=== PATIENT | male | born 1935 | race Caucasian/White ===

== ENCOUNTER 2016-04-04 15:43 | Inpatient (IN) | payer MEDICARE, BC ==
[~2016-04-04] VITALS: Ht 182.9 cm; Wt 77.9 kg
[~2016-04-04 15:43] MED LIST: AGGRENOX CAPSUL1 CAP PO; AGGRENOX ER 251 CER PO; ALDACTONE 25MG25 M1 PO; ALDACTONE 25MG25 MG PO; AREDS 2 PO; ASPIR-LOW81 MG PO; ASPIRIN E.C. 8181 MG PO; AVODART 0.5MG0.5 MG PO; CALCIUM + D 6001 TA1 PO; CLONAZEPAM PO; DOXAZOCIN; DOXAZOCIN PO; ESCITALOPRAM; FISH OIL CONC1000 MG PO; FLAXSEED OIL1 CAP PO; FLOMAX 0.40.4 MG/CAP PO; FLONASE NASAL S16 GM NS; HCTZ; HCTZ PO; HCTZ12.5TAB PO; JALYN 0.5 MG-0.1 CAP PO; LEXAPRO 10MG10 MG PO; LEXAPRO PO; LOPRESSOR 225 MG/TAB PO; LOTENSIN40 MG PO; LOTENSIN5 MG PO; LOTREL 5 MG-201 CAP PO; LOTREL 5 MG-401 CAP PO; LUTEIN20 MG PO; MULTAQ400 MG PO; NORCO 325 MG-51 TAB PO; NORVASC 5MG5 MG/TAB PO; PACERONE200 MG PO; POTASSIUM CL 220 MEQ PO; PRILOSEC 20MG20 MG PO; PRILOSEC10 MG PO; TEKTURNA HCT PO; TEKTURNA HCT150/12.5 PO; TOPROL; TOPROL PO; TOPROL XL25 MG PO; ZOCOR; ZOCOR 10MG10 MG PO; ZOCOR 40MG40 MG PO; [UNRECOGNIZED DRUG - OTHER] PO
[2016-04-04 16:42] LABS: BASO # 0.1 (0.0-0.2); BASO % 0.8 % (0.0-2.0); EOS # 0.2 (0.0-0.7); EOS % 2.6 % (0-4.0); GRAN # 5.3 (1.4-6.5); GRAN % 67.6 % (42.2-75.2); HEMATOCRIT 42.1 % (42.0-52.0); HEMOGLOBIN 14.3 g/dl (13.5-18.0); LYMPH # 1.5 (1.2-3.4); LYMPH % 19.1 % (20.0-51.0); MEAN CELL VOLUME 103 fl (80.0-100.0); MEAN CORPUSCULAR HEMOGLOBIN 35 pg (27.0-31.0); MEAN CORPUSCULAR HGB CONC 34 g/dl (33.0-37.0); MEAN PLATELET VOLUME 9.7 fl (7.4-10.4); MONO # 0.8 (0.1-0.6); MONO % 9.6 % (1.7-9.3); PLATELET COUNT 191 K/mm3 (130-400); RED BLOOD COUNT 4.07 M/mm3 (4.20-5.60); WHITE BLOOD COUNT 7.8 K/mm3 (4.8-10.8)
[2016-04-04 16:54] LABS: ADJUSTED CALCIUM 9.4 mg/dL (8.4-10.2); ALANINE AMINOTRANSFERASE 36 U/L (21-72); ALBUMIN 4.4 gm/dL (3.5-5.0); ALKALINE PHOSPHATASE 54 U/L (50-136); ANION GAP 10 mmol/L (7-16); BILIRUBIN,TOTAL 1.1 mg/dL (0.0-1.0); BLOOD UREA NITROGEN 18 mg/dL (9-20); CALCIUM 9.7 mg/dL (8.4-10.2); CARBON DIOXIDE 28 mmol/L (22-30); CHLORIDE 101 mmol/L (98-107); CREATININE, serum 0.97 mg/dL (0.66-1.25); GLUCOSE 94 mg/dL (74-106); SODIUM 139 mmol/L (137-145); TOTAL PROTEIN 7.4 gm/dL (6.4-8.2)
[2016-04-04 16:58] LABS: C-REACTIVE PROTEIN < 0.5 mg/dL (0.0-0.9)
[2016-04-04] MEDS ORDERED: ZOCOR 10MG10 MG PO (17:14)
[2016-04-04 17:21] LABS: PH 7 (5-8); SQUAMOUS EPITHELIAL None Seen /hpf; URINE APPEARANCE Clear; URINE BACTERIA None Seen /hpf; URINE BILIRUBIN Negative (NEGATIVE); URINE BLOOD 3+ (NEGATIVE); URINE COLOR Yellow; URINE GLUCOSE Negative (NEGATIVE); URINE KETONE Trace (NEGATIVE); URINE UROBILINOGEN Negative (NEGATIVE); URINE WBC 0-2 /hpf
[2016-04-04 18:34] LABS: PROLACTIN 10.1 ng/mL (3.7-17.9)
[2016-04-04 19:46] VITALS: BP 170/86; PULSE 79; TEMP 98.4
[2016-04-04 19:59] LABS: ERYTHROCYTE SEDIMENTATION RATE 1 mm/hr (0-30)
[2016-04-04 23:14] VITALS: BP 140/78; PULSE 79; TEMP 98.1
[2016-04-05] VITALS (24 sets, daily range): BP systolic 111–178; BP diastolic 7–101; PULSE 64–81; TEMP 97.3–98.8
[2016-04-05 07:10] LABS: BASO # 0.1 (0.0-0.2); BASO % 0.8 % (0.0-2.0); EOS # 0.4 (0.0-0.7); EOS % 5.7 % (0-4.0); GRAN # 3.3 (1.4-6.5); GRAN % 54.1 % (42.2-75.2); HEMOGLOBIN 13.7 g/dl (13.5-18.0); LYMPH # 1.7 (1.2-3.4); LYMPH % 28.1 % (20.0-51.0); MEAN CELL VOLUME 104 fl (80.0-100.0); MEAN CORPUSCULAR HEMOGLOBIN 35 pg (27.0-31.0); MEAN CORPUSCULAR HGB CONC 33 g/dl (33.0-37.0); MEAN PLATELET VOLUME 9.6 fl (7.4-10.4); MONO # 0.7 (0.1-0.6); MONO % 11.1 % (1.7-9.3); PLATELET COUNT 184 K/mm3 (130-400); RED BLOOD COUNT 3.93 M/mm3 (4.20-5.60); WHITE BLOOD COUNT 6.1 K/mm3 (4.8-10.8)
[2016-04-05 07:29] LABS: CALCIUM 9.2 mg/dL (8.4-10.2); CREATININE, serum 0.93 mg/dL (0.66-1.25); POTASSIUM 3.4 mmol/L (3.4-5.0)
[2016-04-05 07:41] LABS: THYROXINE (T4)-TOTAL 4.7 ug/dL (5.5-11.0)
[2016-04-05 08:28] LABS: THYROID STIMULATING HORMONE 1.07 uIU/mL (0.465-4.680)
[2016-04-06 03:38] VITALS: BP 116/66; PULSE 78; TEMP 98.2
[2016-04-06 07:48] VITALS: BP 135/85; PULSE 76; TEMP 97.6
[2016-04-06 12:00] VITALS: BP 133/84; PULSE 75; TEMP 97.8
[2016-04-06 16:21] VITALS: BP 151/87; PULSE 74; TEMP 97.5
[2016-04-06 20:17] VITALS: BP 175/90; PULSE 78; TEMP 98.2
[2016-04-07] VITALS (7 sets, daily range): BP systolic 126–150; BP diastolic 77–99; PULSE 76–84; TEMP 97.6–98.2
[2016-04-08 03:28] VITALS: BP 152/86; PULSE 74; TEMP 97.6
[2016-04-08 08:50] VITALS: BP 147/91; PULSE 79; TEMP 97.6
[2016-04-08] MEDS ORDERED: BETAPACE 80MG80 MG PO (12:23)
[2016-04-08] MEDS ORDERED: NORVASC2.5 MG PO (12:25)
[2016-04-08] MEDS ORDERED: ASPIRIN E.C. 8181 MG PO (12:25)
== END 2016-04-08 14:42 | disposition home or self-care (01) | DRG 65 ==
LOC: COL.ER 15:43 → MEDICAL 17:36 → EDBD 04-08 14:42 → MEDICAL 04-08 14:42
PROVIDERS: Family Medicine; Nurse Practitioner Family
DX: I63.40 Cerebral infarction due to embolism of unspecified cerebral artery (principal); I50.32 Chronic diastolic (congestive) heart failure; I10 Essential (primary) hypertension; N40.0 Benign prostatic hyperplasia without lower urinary tract symptoms; E78.5 Hyperlipidemia, unspecified; K21.9 Gastro-esophageal reflux disease without esophagitis; I48.0 Paroxysmal atrial fibrillation; H35.3220 Exudative age-related macular degeneration, left eye, stage unspecified; Z85.72 Personal history of non-Hodgkin lymphomas; Z86.73 Personal history of transient ischemic attack (TIA), and cerebral infarction without residual deficits; Z87.891 Personal history of nicotine dependence
CPT/HCPCS: 99223-AI; 99232-AI; 99239; A9585; G0378; G8978-GP; G8979-GP; G8987-GO; G8988-GO; J2175; J2250

== ENCOUNTER → 2016-06-08 | Outpatient (CLI) | payer MEDICARE, BC ==
[~2016-06-08] MED LIST changes: +BETAPACE 80MG80 MG PO; +NORVASC2.5 MG PO
== END ==
LOC: COL.RAD 09:09
DX: C83.39 Diffuse large B-cell lymphoma, extranodal and solid organ sites (principal); S32.028A Other fracture of second lumbar vertebra, initial encounter for closed fracture; N40.0 Benign prostatic hyperplasia without lower urinary tract symptoms
CPT/HCPCS: Q9967

== ENCOUNTER 2017-06-12 19:29 | Emergency (ER) | payer MEDICARE, BC ==
[2007-11-29 07:20] VITALS: BP 162/86
[~2017-06-12] VITALS: Ht 182.9 cm; Wt 72.7 kg
[~2017-06-12 19:29] MED LIST changes: +ASPIRIN 81M81 MG/TA2 PO; +BETAPACE 120MG120 MG PO; +CARDIZEM CD 18180 MG PO; +ELIQUIS 5MG PO; +HYGROTON 2525 MG/TAB PO; +LOTENSIN 1010 MG/TAB PO
[2017-06-12 19:31] VITALS: TEMP 98.3
[2017-06-12] MEDS ORDERED: PRILOSEC 20MG20 MG PO (19:57)
[2017-06-12] MEDS ORDERED: ELIQUIS 5MG PO (19:58)
[2017-06-12 20:48] LABS: BASO # 0.1 (0.0-0.2); BASO % 1.3 % (0.0-2.0); EOS # 0.4 (0.0-0.7); EOS % 5.9 % (0-4.0); GRAN % 42.7 % (42.2-75.2); HEMOGLOBIN 12.3 g/dl (13.5-18.0); LYMPH # 2.8 (1.2-3.4); LYMPH % 39.3 % (20.0-51.0); MEAN CELL VOLUME 105 fl (80.0-100.0); MEAN CORPUSCULAR HEMOGLOBIN 36 pg (27.0-31.0); MEAN CORPUSCULAR HGB CONC 34 g/dl (33.0-37.0); MEAN PLATELET VOLUME 9.3 fl (7.4-10.4); MONO # 0.7 (0.1-0.6); MONO % 10.5 % (1.7-9.3); PLATELET COUNT 192 K/mm3 (130-400); RED BLOOD COUNT 3.46 M/mm3 (4.20-5.60); REDCELL DISTRIBUTION WIDTH-CV 14.8 % (11.5-14.5)
[2017-06-12 20:49] LABS: HEMATOCRIT 36.2 % (42.0-52.0)
[2017-06-12 21:01] LABS: ALANINE AMINOTRANSFERASE 26 U/L (21-72); ALBUMIN 3.8 gm/dL (3.5-5.0); ALKALINE PHOSPHATASE 47 U/L (50-136); ANION GAP 15 mmol/L (7-16); AST,SGOT 27 U/L (15-37); BILIRUBIN,TOTAL 0.1 mg/dL (0.0-1.0); BLOOD UREA NITROGEN 16 mg/dL (9-20); C-REACTIVE PROTEIN < 0.5 mg/dL (0.0-0.9); CALCIUM 8.9 mg/dL (8.4-10.2); CARBON DIOXIDE 25 mmol/L (22-30); CHLORIDE 101 mmol/L (98-107); CREATININE, serum 1.09 mg/dL (0.66-1.25); GLUCOSE 89 mg/dL (74-106); POTASSIUM 3.5 mmol/L (3.4-5.0); SODIUM 140 mmol/L (137-145); TOTAL PROTEIN 6.8 gm/dL (6.4-8.2)
[2017-06-12 21:04] LABS: COLLECTION METHOD CLEAN CATCH
[2017-06-12 21:09] LABS: PH 5 (5-8); SQUAMOUS EPITHELIAL None Seen /hpf; URINE APPEARANCE Clear; URINE BACTERIA None Seen /hpf; URINE BILIRUBIN Negative (NEGATIVE); URINE BLOOD Negative (NEGATIVE); URINE COLOR Straw; URINE GLUCOSE Negative (NEGATIVE); URINE KETONE Negative (NEGATIVE); URINE LEUKOCYTE ESTERASE Negative (NEGATIVE); URINE NITRATE Negative (NEGATIVE); URINE PROTEIN(semi-quant) Negative (NEGATIVE); URINE RBC 0-2 /hpf; URINE UROBILINOGEN Negative (NEGATIVE)
[2017-06-12 21:10] LABS: TROPONIN-I < 0.012 ng/mL (0.000-0.034)
[2017-06-12 23:58] VITALS: BP 147/88; PULSE 70
== END 2017-06-13 00:05 | disposition home or self-care (01) ==
LOC: COL.ER 19:29
PROVIDERS: Emergency Medicine
DX: F10.99 Alcohol use, unspecified with unspecified alcohol-induced disorder (principal); R42 Dizziness and giddiness; I10 Essential (primary) hypertension; I48.91 Unspecified atrial fibrillation; E78.00 Pure hypercholesterolemia, unspecified; Z86.73 Personal history of transient ischemic attack (TIA), and cerebral infarction without residual deficits; Y90.5 Blood alcohol level of 100-119 mg/100 ml; Z85.72 Personal history of non-Hodgkin lymphomas; Z95.0 Presence of cardiac pacemaker; Z79.01 Long term (current) use of anticoagulants; Z79.82 Long term (current) use of aspirin
CPT/HCPCS: J2060; J7030

== ENCOUNTER → 2018-06-26 | Outpatient (CLI) | payer MEDICARE, BC | LOC: ZCOL.LAB 17:12 | DX: R06.02 Shortness of breath (principal) ==

== ENCOUNTER 2019-04-19 15:52 | Inpatient (IN) | payer MEDICARE, BC ==
[~2019-04-19] VITALS: Ht 182.9 cm; Wt 75.9 kg
[2019-04-19 16:20] LABS: BASO # 0.1 (0.0-0.2); BASO % 0.8 % (0.0-2.0); EOS # 0.3 (0.0-0.7); EOS % 3.9 % (0-4.0); GRAN % 57.6 % (42.2-75.2); HEMATOCRIT 38.7 % (42.0-52.0); HEMOGLOBIN 13.3 g/dl (13.5-18.0); LYMPH # 2.3 (1.2-3.4); LYMPH % 26.7 % (20.0-51.0); MEAN CELL VOLUME 104 fl (80.0-100.0); MEAN CORPUSCULAR HEMOGLOBIN 36 pg (27.0-31.0); MEAN CORPUSCULAR HGB CONC 34 g/dl (33.0-37.0); MEAN PLATELET VOLUME 9.5 fl (7.4-10.4); MONO # 0.9 (0.1-0.6); MONO % 10.7 % (1.7-9.3); PLATELET COUNT 228 K/mm3 (130-400); RED BLOOD COUNT 3.74 M/mm3 (4.20-5.60); REDCELL DISTRIBUTION WIDTH-CV 12.4 % (11.5-14.5)
[2019-04-19 16:29] LABS: ALANINE AMINOTRANSFERASE 20 U/L (21-72); ALBUMIN 4.6 gm/dL (3.5-5.0); ALKALINE PHOSPHATASE 45 U/L (50-136); ANION GAP 13 mmol/L (7-16); AST,SGOT 30 U/L (15-37); BILIRUBIN,TOTAL 0.5 mg/dL (0.0-1.0); BLOOD UREA NITROGEN 22 mg/dL (9-20); CALCIUM 9.5 mg/dL (8.4-10.2); CARBON DIOXIDE 27 mmol/L (22-30); CHLORIDE 96 mmol/L (98-107); CREATININE, serum 1.31 (0.66-1.25); GLUCOSE 99 mg/dL (74-106); POTASSIUM 3.8 mmol/L (3.4-5.0); SODIUM 136 mmol/L (137-145); TOTAL PROTEIN 7.6 gm/dL (6.4-8.2)
[2019-04-19 16:32] LABS: INR 1.3 (0.8-3.0); PROTHROMBIN TIME 14.7 SECONDS (9.7-12.8)
[2019-04-19 16:43] LABS: TROPONIN-I < 0.012 ng/mL (0.000-0.035)
[2019-04-19 18:04] LABS: COLLECTION METHOD CLEAN CATCH
[2019-04-19] MEDS ORDERED: NORVASC 10MG10 MG PO (18:05)
[2019-04-19] MEDS ORDERED: HYGROTON 2525 MG/TAB (18:08)
[2019-04-19 18:09] LABS: PH 6 (5-8); SQUAMOUS EPITHELIAL None Seen /hpf; URINE APPEARANCE Clear; URINE BACTERIA None Seen /hpf; URINE BILIRUBIN Negative (NEGATIVE); URINE BLOOD Negative (NEGATIVE); URINE COLOR Yellow; URINE GLUCOSE Negative (NEGATIVE); URINE KETONE Negative (NEGATIVE); URINE LEUKOCYTE ESTERASE Negative (NEGATIVE); URINE NITRATE Negative (NEGATIVE); URINE PROTEIN(semi-quant) Negative (NEGATIVE); URINE RBC 0-2 /hpf; URINE WBC 0-2 /hpf
[2019-04-19 20:41] VITALS: BP 136/83; PULSE 77; TEMP 97.8
--- NOTE | 2019-04-19 20:45 | NUR ---
Arrived to medical floor. Assessment complete. Lungs clear. Heart sounds normal. Bowels active x4. Pulses strong throughout. INT left AC flushed. No limb drift or weakness to either side. Alert and orientated. 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 Minimal right facial droop. Slurred speech but understandable. Orientated to medical floor and room. Family at bedside. All questions answered. Would like to eat if possible. Will contact hospitalist for diet order.
[2019-04-19] MEDS ORDERED: LOTENSIN20 MG PO (21:04)
--- NOTE | 2019-04-19 21:30 | NUR ---
Dr. Theodore in room to see patient. Per Dr. Eason do bedside swallow study and if patient passes allow to eat on general diet. Will order night time medications-give aspirin tonight and eliquis, will add others. Will provide to patient. Bedside swallow preformed with patient at 90 degrees. Tolerated well without complications. Allowed patient to eat at this time with close monitoring. No choking or signs of difficulty swallowing. Will be NPO for MRI in AM.
[2019-04-19 23:49] VITALS: BP 123/64; PULSE 73; TEMP 97.8
[2019-04-20] VITALS (7 sets, daily range): BP systolic 99–159; BP diastolic 59–96; PULSE 69–80; TEMP 97.4–99
--- NOTE | 2019-04-20 00:15 | NUR ---
Resting in bed. Used urinal. Denies needs. Call light in reach.
--- NOTE | 2019-04-20 01:50 | NUR ---
Used urinal. Denies needs. Call light in reach.
--- NOTE | 2019-04-20 04:21 | NUR ---
Resting in bed. Denies needs. Call light in reach.
--- NOTE | 2019-04-20 06:15 | NUR ---
Patient had uneventful night. Resting in bed this AM. Call light in reach.
--- NOTE | 2019-04-20 06:51 | NUR ---
Report given to LINA Villela
--- NOTE | 2019-04-20 06:51 | NUR ---
Report given to LINA Valle
[2019-04-20 07:13] LABS: BASO # 0.1 (0.0-0.2); BASO % 0.9 % (0.0-2.0); EOS # 0.4 (0.0-0.7); EOS % 5.9 % (0-4.0); HEMATOCRIT 38.5 % (42.0-52.0); HEMOGLOBIN 13.1 g/dl (13.5-18.0); LYMPH % 27.2 % (20.0-51.0); MEAN CELL VOLUME 105 fl (80.0-100.0); MEAN CORPUSCULAR HEMOGLOBIN 36 pg (27.0-31.0); MEAN CORPUSCULAR HGB CONC 34 g/dl (33.0-37.0); MEAN PLATELET VOLUME 9.6 fl (7.4-10.4); MONO # 0.9 (0.1-0.6); MONO % 11.9 % (1.7-9.3); PLATELET COUNT 221 K/mm3 (130-400); RED BLOOD COUNT 3.67 M/mm3 (4.20-5.60); REDCELL DISTRIBUTION WIDTH-CV 12.4 % (11.5-14.5)
[2019-04-20 07:19] LABS: CALCIUM 9.2 mg/dL (8.4-10.2); CHOLESTEROL RISK RATIO 2.9; CREATININE, serum 0.94 (0.66-1.25); POTASSIUM 3.2 mmol/L (3.4-5.0)
--- NOTE | 2019-04-20 07:40 | NUR ---
Lying in bed with eyes closed. Opens eyes when name called out. Alert and oriented x4. Denies pain. 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 Speech slurred at times. Pupil response quick and equal bilaterally. Hand elevator tender equal bilaterally. Able to lift and hold up legs. Patient denies needs at this time.
[2019-04-20 07:47] LABS: TSH w REFLEX 2.08 uIU/mL (0.465-4.680)
--- NOTE | 2019-04-20 08:25 | NUR ---
To MRI via wheelchair.
--- NOTE | 2019-04-20 09:37 | NUR ---
Patient brought back to room from MRI via wheelchair. and co-worker in room.
--- NOTE | 2019-04-20 10:48 | NUR ---
Initial visit; Patient and family thanked [employer] for looking in on him and offering prayer and God's blessings.
--- NOTE | 2019-04-20 11:36 | NUR ---
Speech in room to evaluate patient.
--- NOTE | 2019-04-20 15:05 | NUR ---
Ambulating in halls with PT. Gait steady.
--- NOTE | 2019-04-20 15:36 | NUR ---
Patient assisted into shower.
--- NOTE | 2019-04-20 15:50 | NUR ---
Patient performed own shower with staff at standby. Able to dry self off. Puts on personal underwear and hospital socks. Gown applied. Patient ambulates into room and sits in chair. Reconnected to telemetry and IV fluids. Family in room with the patient.
--- NOTE | 2019-04-20 16:37 | NUR ---
[employer] Analyst met with patient to discuss discharge planning. Patient lives in [place] with his Lisseth (ph#[phone]). Patient sees Dr. Wilson for primary care and has medications delivered to his home by [facility]. Patient does not use any DME and is independent with ADLS. Patient reports his Lisseth is his DPOA. Patient plans to return home upon discharge. No additional needs at this time.
--- NOTE | 2019-04-20 16:57 | NUR ---
Patient sitting up in chair. Family in room. Patient denies pain or needs at this time.
--- NOTE | 2019-04-20 20:10 | NUR ---
Sitting in recliner. Assessment complete. Lungs clear. Heart sounds normal. Bowels active x4. Pulses strong throughout. No edema noted. NO drift, neuro check WNL. Hand stencil inspector equal. Alert and orientated. IV right forearm without complications. Denies pain. Denies needs at this time. Call light in reach.
--- NOTE | 2019-04-20 23:34 | NUR ---
Up to restroom and returned to bed. Denies needs. Call light in reach.
[2019-04-21 04:43] VITALS: BP 130/67; PULSE 80; TEMP 97.6
--- NOTE | 2019-04-21 05:16 | NUR ---
Patient had uneventful night. Resting in bed this AM. Call light in reach.
--- NOTE | 2019-04-21 07:02 | NUR ---
Report given to LINA Marcum
[2019-04-21 07:43] LABS: BASO # 0.1 (0.0-0.2); BASO % 0.7 % (0.0-2.0); EOS # 0.4 (0.0-0.7); EOS % 5.2 % (0-4.0); GRAN # 3.6 (1.4-6.5); GRAN % 54.7 % (42.2-75.2); HEMOGLOBIN 12.3 g/dl (13.5-18.0); LYMPH # 1.8 (1.2-3.4); LYMPH % 26.7 % (20.0-51.0); MEAN CELL VOLUME 104 fl (80.0-100.0); MEAN CORPUSCULAR HEMOGLOBIN 36 pg (27.0-31.0); MEAN CORPUSCULAR HGB CONC 35 g/dl (33.0-37.0); MEAN PLATELET VOLUME 9.7 fl (7.4-10.4); MONO # 0.8 (0.1-0.6); MONO % 12.4 % (1.7-9.3); PLATELET COUNT 222 K/mm3 (130-400); REDCELL DISTRIBUTION WIDTH-CV 12.4 % (11.5-14.5)
[2019-04-21 07:56] LABS: CALCIUM 9.1 mg/dL (8.4-10.2); CREATININE, serum 0.85 (0.66-1.25)
[2019-04-21 08:15] LABS: HEMATOCRIT 35.5 % (42.0-52.0)
[2019-04-21 08:45] VITALS: BP 119/77; PULSE 71; TEMP 98.6
[2019-04-21] MEDS ORDERED: LIPITOR 40MG TA40 MG PO (11:39)
[2019-04-21 12:03] VITALS: BP 117/67; PULSE 78; TEMP 97.5
--- NOTE | 2019-04-21 14:25 | NUR ---
Pt left the floor at this time. Discharge instructions discussed.
== END 2019-04-21 14:32 | disposition home or self-care (01) | DRG 65 ==
LOC: COL.ER 15:52 → MEDICAL 19:03
PROVIDERS: Emergency Medicine; Student in an Organized Health Care Education/Training Program; ADMIT Student in an Organized Health Care Education/Training Program
DX: I63.89 Other cerebral infarction (principal); I48.20 Chronic atrial fibrillation, unspecified; C85.90 Non-Hodgkin lymphoma, unspecified, unspecified site; I48.91 Unspecified atrial fibrillation; I10 Essential (primary) hypertension; N40.0 Benign prostatic hyperplasia without lower urinary tract symptoms; K21.9 Gastro-esophageal reflux disease without esophagitis; R29.810 Facial weakness; G62.9 Polyneuropathy, unspecified; H35.30 Unspecified macular degeneration; R00.1 Bradycardia, unspecified; T45.1X5A Adverse effect of antineoplastic and immunosuppressive drugs, initial encounter; Z96.653 Presence of artificial knee joint, bilateral; Z79.82 Long term (current) use of aspirin; Z87.891 Personal history of nicotine dependence; Z79.02 Long term (current) use of antithrombotics/antiplatelets; Z95.0 Presence of cardiac pacemaker; Z90.89 Acquired absence of other organs
CPT/HCPCS: OP; 99233-AI; 99239; A9585; J3475; J3480; J7030; Q9967

== ENCOUNTER 2019-10-12 19:04 | Emergency (ER) | payer MEDICARE, BC ==
[2007-11-29 07:20] VITALS: BP 162/86
[~2019-10-12] VITALS: Ht 182.9 cm; Wt 77.3 kg
[~2019-10-12 19:04] MED LIST changes: +HYGROTON 2525 MG/TAB; +LIPITOR 40MG TA40 MG PO; +LOTENSIN20 MG PO; +NORVASC 10MG10 MG PO
[2019-10-12 19:10] VITALS: BP 149/89; PULSE 70
[2019-10-12 19:49] LABS: BASO # 0.1 (0.0-0.2); BASO % 1.1 % (0.0-2.0); EOS # 0.2 (0.0-0.7); EOS % 3.2 % (0-4.0); GRAN # 3.5 (1.4-6.5); GRAN % 46.8 % (42.2-75.2); HEMATOCRIT 38.5 % (42.0-52.0); LYMPH # 2.8 (1.2-3.4); LYMPH % 37.1 % (20.0-51.0); MEAN CELL VOLUME 104 fl (80.0-100.0); MEAN CORPUSCULAR HEMOGLOBIN 35 pg (27.0-31.0); MEAN CORPUSCULAR HGB CONC 34 g/dl (33.0-37.0); MEAN PLATELET VOLUME 9.1 fl (7.4-10.4); MONO # 0.9 (0.1-0.6); MONO % 11.5 % (1.7-9.3); PLATELET COUNT 190 K/mm3 (130-400); RED BLOOD COUNT 3.69 M/mm3 (4.20-5.60); REDCELL DISTRIBUTION WIDTH-CV 13.7 % (11.5-14.5)
[2019-10-12 19:52] LABS: INR 1.1 (0.8-3.0); PROTHROMBIN TIME 12.3 SECONDS (9.7-12.8)
[2019-10-12 19:59] LABS: ALANINE AMINOTRANSFERASE 20 U/L (4-49); ALBUMIN 4.2 gm/dL (3.5-5.0); ALKALINE PHOSPHATASE 47 U/L (50-136); ANION GAP 13 mmol/L (7-16); AST,SGOT 33 U/L (15-37); BILIRUBIN,TOTAL 0.5 mg/dL (0.0-1.0); BLOOD UREA NITROGEN 17 mg/dL (9-20); C-REACTIVE PROTEIN < 0.5 mg/dL (0.0-0.9); CALCIUM 9.2 mg/dL (8.4-10.2); CARBON DIOXIDE 24 mmol/L (22-30); CHLORIDE 100 mmol/L (98-107); CREATININE, serum 0.89 (0.66-1.25); GLUCOSE 83 mg/dL (74-106); POTASSIUM 3.9 mmol/L (3.4-5.0); SODIUM 136 mmol/L (137-145); TOTAL PROTEIN 7.2 gm/dL (6.4-8.2)
== END 2019-10-12 21:45 | disposition home or self-care (01) ==
LOC: COL.ER 19:04
PROVIDERS: Family Medicine
DX: R47.1 Dysarthria and anarthria (principal); F10.129 Alcohol abuse with intoxication, unspecified; I10 Essential (primary) hypertension; I48.91 Unspecified atrial fibrillation; K21.9 Gastro-esophageal reflux disease without esophagitis; E78.1 Pure hyperglyceridemia; Y90.6 Blood alcohol level of 120-199 mg/100 ml; Z79.01 Long term (current) use of anticoagulants; Z86.73 Personal history of transient ischemic attack (TIA), and cerebral infarction without residual deficits; Z85.72 Personal history of non-Hodgkin lymphomas; Z95.0 Presence of cardiac pacemaker; Z95.9 Presence of cardiac and vascular implant and graft, unspecified; Z79.82 Long term (current) use of aspirin

== ENCOUNTER 2020-05-30 11:00 | Outpatient (RCR) | payer MEDICARE, BC ==
[2020-10-21] MEDS ORDERED: LIPITOR 40MG TA40 MG PO (22:17)
[2020-10-21] MEDS ORDERED: PACERONE100 MG PO (22:18)
[2020-10-21] MEDS ORDERED: INDERAL60 MG PO (22:19)
[2020-10-21] MEDS ORDERED: COLACE 100100 MG/CAP PO (22:19)
[2020-10-24] MEDS ORDERED: CHLOR TRIMETON 44 MG PO (13:19)
[2020-10-27] MEDS ORDERED: THIAMINE 1100 MG/TAB PO (16:31)
[2020-10-27] MEDS ORDERED: DUO-KAPS1 CAP PO (16:31)
[2020-10-27] MEDS ORDERED: FOLIC ACID 11 MG/TA1 PO (16:31)
[2020-10-28] MEDS ORDERED: PACERONE100 MG PO (09:09)
[2020-10-28] MEDS ORDERED: LIPITOR 40MG TA40 MG PO (09:10)
[2020-10-28] MEDS ORDERED: INDERAL60 MG PO (09:10)
[2020-10-28] MEDS ORDERED: LOTENSIN20 MG PO (09:10)
[2020-10-28] MEDS ORDERED: TYLENOL 325MG325 MG PO (09:11)
[2020-10-28] MEDS ORDERED: PRILOSEC 20MG20 MG PO (09:11)
[2020-10-28] MEDS ORDERED: COLACE 100100 MG/CAP PO (09:11)
[2020-10-28] MEDS ORDERED: MELATIN 3 MG-11 TAB PO (09:12)
[2020-10-28] MEDS ORDERED: ATARAX 25MG25 MG/TAB PO (10:06)
[2020-12-16] MEDS ORDERED: LOTENSIN40 MG PO (08:35)
[2020-12-16] MEDS ORDERED: NATURE'S BLEND100 M2 PO (08:36)
[2020-12-16] MEDS ORDERED: REMERON 15M15 MG/TA1 PO (08:36)
[2020-12-16] MEDS ORDERED: INDERAL60 MG PO (08:37)
[2020-12-16] MEDS ORDERED: FOLIC ACID 11 MG/TA1 PO (08:37)
[2020-12-16] MEDS ORDERED: PRILOTC PO (08:37)
[2020-12-16] MEDS ORDERED: NATURAL IRON65 MG PO (08:38)
[2020-12-16] MEDS ORDERED: COLACE 100100 MG/CAP PO (08:39)
[2020-12-16] MEDS ORDERED: LIPITOR 40MG TA40 MG PO (08:39)
[2020-12-16] MEDS ORDERED: ELIQUIS 2.5 PO (08:39)
[2020-12-16] MEDS ORDERED: PACERONE100 MG PO (08:40)
[2020-12-16] MEDS ORDERED: NORCO 325 MG-51 TAB PO (12:36)
== END 2020-06-25 16:51 | disposition home or self-care (01) ==
LOC: EDBD 11:00 → WSC 11:00
DX: R53.1 Weakness (principal); W19.XXXA Unspecified fall, initial encounter

== ENCOUNTER 2020-09-05 08:27 | Day surgery (SDC) | payer MEDICARE, BC ==
[2007-11-29 07:20] VITALS: BP 162/86
[~2020-09-05] VITALS: Ht 182.9 cm; Wt 75.7 kg
[2020-09-05 09:17] LABS: HEMOGLOBIN 14.9 g/dl (13.5-18.0); MEAN CELL VOLUME 106 fl (80.0-100.0); MEAN CORPUSCULAR HEMOGLOBIN 37 pg (27.0-31.0); MEAN CORPUSCULAR HGB CONC 35 g/dl (33.0-37.0); MEAN PLATELET VOLUME 9.4 fl (7.4-10.4); PLATELET COUNT 230 K/mm3 (130-400); RED BLOOD COUNT 4.06 M/mm3 (4.20-5.60); REDCELL DISTRIBUTION WIDTH-CV 13.8 % (11.5-14.5)
[2020-09-05] MEDS ORDERED: PACERONE400 MG PO (09:20)
[2020-09-05] MEDS ORDERED: ZOCOR5 MG PO (09:21)
[2020-09-05 09:22] VITALS: BP 138/83; PULSE 82; TEMP 98.4
[2020-09-05 09:26] LABS: CALCIUM 10.1 mg/dL (8.4-10.2); CREATININE, serum 0.84 (0.66-1.25); MAGNESIUM 1.9 mg/dL (1.6-2.3); POTASSIUM 4.2 mmol/L (3.4-5.0)
[2020-09-05 09:28] LABS: INR 0.9 (0.8-3.0); PROTHROMBIN TIME 10.4 SECONDS (9.7-12.8)
[2020-09-05 09:31] LABS: PARTIAL THROMBOPLASTIN TIME 28.1 SECONDS (26.0-37.0)
[2020-09-05 09:57] LABS: THYROID STIMULATING HORMONE 5.32 uIU/mL (0.465-4.680)
[2020-09-05 11:37] VITALS: BP 149/77; PULSE 60
[2020-09-05 12:00] VITALS: BP 153/80; PULSE 65
[2020-09-05 12:30] VITALS: BP 142/81; PULSE 65
[2020-09-05] MEDS ORDERED: CEPHALEXIN500 M1 PO (12:52)
[2020-09-05 13:00] VITALS: BP 142/81; PULSE 63
[2020-09-05 13:30] VITALS: PULSE 62
--- NOTE | 2020-09-05 13:54 | NUR ---
PT did well during his recovery. Pt remained in bed for 2 hours with hob elevated 30deg; ice pack to pacer site was held in place by 6"franklin wrap; telemetry was employed. Pt remained awake and alert, his son remained at his bs for the most part. Pt was able to eat lunch with no problem. Pt denied any pain at incision site, dressing to site remained clean dry and intact. I reviewed dc, fu and medication instructions with pt and his son, both of whom verbalized understanding. iv was dc'd after pt was ambulatory to br with his baseline gait with a cane and stand by assist. Pt was escorted to exit via wheelchair.
[2020-10-21] MEDS ORDERED: LIPITOR 40MG TA40 MG PO (22:17)
[2020-10-21] MEDS ORDERED: PACERONE100 MG PO (22:18)
[2020-10-21] MEDS ORDERED: INDERAL60 MG PO (22:19)
[2020-10-21] MEDS ORDERED: COLACE 100100 MG/CAP PO (22:19)
[2020-10-24] MEDS ORDERED: CHLOR TRIMETON 44 MG PO (13:19)
[2020-10-27] MEDS ORDERED: FOLIC ACID 11 MG/TA1 PO (16:31)
[2020-10-27] MEDS ORDERED: DUO-KAPS1 CAP PO (16:31)
[2020-10-27] MEDS ORDERED: THIAMINE 1100 MG/TAB PO (16:31)
[2020-10-28] MEDS ORDERED: PACERONE100 MG PO (09:09)
[2020-10-28] MEDS ORDERED: INDERAL60 MG PO (09:10)
[2020-10-28] MEDS ORDERED: LIPITOR 40MG TA40 MG PO (09:10)
[2020-10-28] MEDS ORDERED: LOTENSIN20 MG PO (09:10)
[2020-10-28] MEDS ORDERED: COLACE 100100 MG/CAP PO (09:11)
[2020-10-28] MEDS ORDERED: PRILOSEC 20MG20 MG PO (09:11)
[2020-10-28] MEDS ORDERED: TYLENOL 325MG325 MG PO (09:11)
[2020-10-28] MEDS ORDERED: MELATIN 3 MG-11 TAB PO (09:12)
[2020-10-28] MEDS ORDERED: ATARAX 25MG25 MG/TAB PO (10:06)
[2020-12-16] MEDS ORDERED: LOTENSIN40 MG PO (08:35)
[2020-12-16] MEDS ORDERED: REMERON 15M15 MG/TA1 PO (08:36)
[2020-12-16] MEDS ORDERED: NATURE'S BLEND100 M2 PO (08:36)
[2020-12-16] MEDS ORDERED: INDERAL60 MG PO (08:37)
[2020-12-16] MEDS ORDERED: PRILOTC PO (08:37)
[2020-12-16] MEDS ORDERED: FOLIC ACID 11 MG/TA1 PO (08:37)
[2020-12-16] MEDS ORDERED: NATURAL IRON65 MG PO (08:38)
[2020-12-16] MEDS ORDERED: COLACE 100100 MG/CAP PO (08:39)
[2020-12-16] MEDS ORDERED: ELIQUIS 2.5 PO (08:39)
[2020-12-16] MEDS ORDERED: LIPITOR 40MG TA40 MG PO (08:39)
[2020-12-16] MEDS ORDERED: PACERONE100 MG PO (08:40)
[2020-12-16] MEDS ORDERED: NORCO 325 MG-51 TAB PO (12:36)
== END 2020-09-05 14:00 | disposition home or self-care (01) ==
LOC: COL.CAR 08:27 → EDBD 08:30 → COL.CAR 08:30
PROVIDERS: Internal Medicine Cardiovascular Disease
DX: Z45.010 Encounter for checking and testing of cardiac pacemaker pulse generator [battery] (principal); I48.0 Paroxysmal atrial fibrillation; E78.5 Hyperlipidemia, unspecified; G62.0 Drug-induced polyneuropathy; C85.90 Non-Hodgkin lymphoma, unspecified, unspecified site; Z20.822 Contact with and (suspected) exposure to COVID-19; Z86.73 Personal history of transient ischemic attack (TIA), and cerebral infarction without residual deficits; Z87.891 Personal history of nicotine dependence; Z79.01 Long term (current) use of anticoagulants; Z79.82 Long term (current) use of aspirin
CPT/HCPCS: C1785; J0282; J0690; J2250; J2704; J3010

== ENCOUNTER 2020-10-17 17:47 | Emergency (ER) | payer MEDICARE, BC ==
[~2020-10-17] VITALS: Ht 182.9 cm; Wt 76.4 kg
[~2020-10-17 17:47] MED LIST changes: +CEPHALEXIN500 M1 PO; +PACERONE400 MG PO; +ZOCOR5 MG PO
[2020-10-17 17:55] VITALS: TEMP 97.6
[2020-10-17 19:53] VITALS: BP 174/117; PULSE 88
[2020-10-21] MEDS ORDERED: LIPITOR 40MG TA40 MG PO (22:17)
[2020-10-21] MEDS ORDERED: PACERONE100 MG PO (22:18)
[2020-10-21] MEDS ORDERED: INDERAL60 MG PO (22:19)
[2020-10-21] MEDS ORDERED: COLACE 100100 MG/CAP PO (22:19)
[2020-10-24] MEDS ORDERED: CHLOR TRIMETON 44 MG PO (13:19)
[2020-10-27] MEDS ORDERED: FOLIC ACID 11 MG/TA1 PO (16:31)
[2020-10-27] MEDS ORDERED: THIAMINE 1100 MG/TAB PO (16:31)
[2020-10-27] MEDS ORDERED: DUO-KAPS1 CAP PO (16:31)
[2020-10-28] MEDS ORDERED: PACERONE100 MG PO (09:09)
[2020-10-28] MEDS ORDERED: INDERAL60 MG PO (09:10)
[2020-10-28] MEDS ORDERED: LOTENSIN20 MG PO (09:10)
[2020-10-28] MEDS ORDERED: LIPITOR 40MG TA40 MG PO (09:10)
[2020-10-28] MEDS ORDERED: TYLENOL 325MG325 MG PO (09:11)
[2020-10-28] MEDS ORDERED: COLACE 100100 MG/CAP PO (09:11)
[2020-10-28] MEDS ORDERED: PRILOSEC 20MG20 MG PO (09:11)
[2020-10-28] MEDS ORDERED: MELATIN 3 MG-11 TAB PO (09:12)
[2020-10-28] MEDS ORDERED: ATARAX 25MG25 MG/TAB PO (10:06)
[2020-12-16] MEDS ORDERED: LOTENSIN40 MG PO (08:35)
[2020-12-16] MEDS ORDERED: REMERON 15M15 MG/TA1 PO (08:36)
[2020-12-16] MEDS ORDERED: NATURE'S BLEND100 M2 PO (08:36)
[2020-12-16] MEDS ORDERED: FOLIC ACID 11 MG/TA1 PO (08:37)
[2020-12-16] MEDS ORDERED: PRILOTC PO (08:37)
[2020-12-16] MEDS ORDERED: INDERAL60 MG PO (08:37)
[2020-12-16] MEDS ORDERED: NATURAL IRON65 MG PO (08:38)
[2020-12-16] MEDS ORDERED: COLACE 100100 MG/CAP PO (08:39)
[2020-12-16] MEDS ORDERED: ELIQUIS 2.5 PO (08:39)
[2020-12-16] MEDS ORDERED: LIPITOR 40MG TA40 MG PO (08:39)
[2020-12-16] MEDS ORDERED: PACERONE100 MG PO (08:40)
[2020-12-16] MEDS ORDERED: NORCO 325 MG-51 TAB PO (12:36)
== END 2020-10-17 19:58 | disposition home or self-care (01) ==
LOC: COL.ER 17:47
DX: S80.11XA Contusion of right lower leg, initial encounter (principal); W19.XXXA Unspecified fall, initial encounter; W22.8XXA Striking against or struck by other objects, initial encounter; Y92.009 Unspecified place in unspecified non-institutional (private) residence as the place of occurrence of the external cause

== ENCOUNTER → 2020-12-16 | Day surgery (SDC) | payer MEDICARE, BC ==
[2007-11-29 07:20] VITALS: BP 162/86
[2020-12-16] VITALS (7 sets, daily range): BP systolic 90–145; BP diastolic 62–88; PULSE 61–66; TEMP 97.3–98
[~2020-12-16] VITALS: Ht 182.9 cm; Wt 69.8 kg
[~2020-12-16] MED LIST changes: +ATARAX 25MG25 MG/TAB PO; +CHLOR TRIMETON 44 MG PO; +COLACE 100100 MG/CAP PO; +DUO-KAPS1 CAP PO; +ELIQUIS 2.5 PO; +FOLIC ACID 11 MG/TA1 PO; +INDERAL60 MG PO; +MELATIN 3 MG-11 TAB PO; +NATURAL IRON65 MG PO; +NATURE'S BLEND100 M2 PO; +PACERONE100 MG PO; +PRILOTC PO; +REMERON 15M15 MG/TA1 PO; +THIAMINE 1100 MG/TAB PO; +TYLENOL 325MG325 MG PO
--- NOTE | 2020-12-16 12:55 | NUR ---
Patient returns to room 1 per cart from PACU and arouses to verbal stimuli. Dressing clean and dry on the rigth lower extremity and on the right thigh. IV fluids infusing via right port a catheter. Siderails up x2 and call light in reach. Spouse at side. Allowed to rest.
--- NOTE | 2020-12-16 13:10 | NUR ---
Room air sats 96%. Resting with eyes closed.
--- NOTE | 2020-12-16 13:25 | NUR ---
Room air 100%. Continues to rest. Offers no complaints of pain.
--- NOTE | 2020-12-16 13:40 | NUR ---
Continues to rest with eyes closed and offers no complaints of pain or nausea. Dressing clean and dry on the right lower extremity.
--- NOTE | 2020-12-16 13:55 | NUR ---
More awake now and taking sips of water. Complains of sore throat when swallowing.
--- NOTE | 2020-12-16 14:15 | NUR ---
Eating pudding and drinking water. Continues to deny pain or nausea.
--- NOTE | 2020-12-16 14:30 | NUR ---
Assisted patient with dressing. Right port a catheter deaccessed. Port flushed with normal saline and Heparin per protocol. Bandaid placed over the site. Site is free of redness or swelling.
--- NOTE | 2020-12-16 14:50 | NUR ---
Dismissal instructions given and patient and spouse both verbalize understanding of these.
--- NOTE | 2020-12-16 14:55 | NUR ---
Patient dismissed to home driven by spouse and taken to the front door per wheelchair and assisted into vehicle by this RN with instructions in hand.
--- NOTE | 2020-12-16 16:00 | NUR ---
Sitting up on the edge of the bed. Voids clear yellow urine. Stood with walker and tolerates activity well.
== END ==
LOC: EDBD 09-09 09:45 → SDCO 09-09 09:45
DX: S80.11XA Contusion of right lower leg, initial encounter (principal); Z79.899 Other long term (current) drug therapy; Z79.01 Long term (current) use of anticoagulants; E87.6 Hypokalemia; K21.9 Gastro-esophageal reflux disease without esophagitis; I10 Essential (primary) hypertension; I48.91 Unspecified atrial fibrillation; R29.6 Repeated falls; E78.5 Hyperlipidemia, unspecified; Z85.72 Personal history of non-Hodgkin lymphomas; E87.1 Hypo-osmolality and hyponatremia; F41.9 Anxiety disorder, unspecified
CPT/HCPCS: J0171; J0360; J0690; J1644; J2405; J2704; J3010; J7120

== ENCOUNTER → 2020-12-31 | Outpatient (CLI) | payer MEDICARE, BC | LOC: ZCOL.LAB 16:54 | DX: T14.8XXD Other injury of unspecified body region, subsequent encounter (principal); S80.11XD Contusion of right lower leg, subsequent encounter ==

== ENCOUNTER 2021-01-23 02:16 | Emergency (ER) | payer MEDICARE, BC ==
[~2021-01-23] VITALS: Ht 182.9 cm; Wt 72.7 kg
[2021-01-23 02:17] VITALS: TEMP 97
[2021-01-23 04:10] VITALS: BP 180/90; PULSE 67
== END 2021-01-23 04:15 | disposition home or self-care (01) ==
LOC: COL.ER 02:16
DX: S01.81XA Laceration without foreign body of other part of head, initial encounter (principal); I48.91 Unspecified atrial fibrillation; Z86.73 Personal history of transient ischemic attack (TIA), and cerebral infarction without residual deficits; Z79.01 Long term (current) use of anticoagulants; W01.190A Fall on same level from slipping, tripping and stumbling with subsequent striking against furniture, initial encounter